=== PATIENT | male | born 1955 | race Caucasian/White ===

== ENCOUNTER 2017-09-14 12:58 | Inpatient (IN) | payer SELFPAY ==
[~2017-09-14] VITALS: Ht 188 cm; Wt 79.4 kg
--- NOTE | ~2017-09-14 | PR ---
[place], [place] PROGRESS NOTE NAME: GIULIANO WALLER UNIT #: [id number] ROOM: 411 DOCTOR: DIANE GIRALDO MD BIRTHDATE: [birth year] DOS: 09/18/2017 SUBJECTIVE: He has been noted comfortable at this time. NG tube remains in place. TPN was continued. The patient remains n.p.o. He has been noted with cough with intermittent sputum expectoration described to be thick. Denies symptoms of chest pain or hemoptysis. The patient remains rather on the telemetry floor this morning. OBJECTIVE: VITAL SIGNS: Normal temperature, respiratory rate 18, heart rate 84, blood pressure 164/99. The pulse oxygen saturation 3 liters nasal cannula 94% saturation. HEENT: No acute change. NECK: Supple. CARDIOVASCULAR: S1, S2 audible. LUNGS: The patient was noted without any crackles, rhonchi, or wheezing at this time. Breath sounds noted mild to moderately decreased bilaterally. ABDOMEN: Soft, status post surgery. LABORATORY DATA: The patient's CMP this morning; BUN normal, creatinine was normal. CBC: WBC count 11.8, remaining CBC normal. The chest x-ray of the patient that was done this morning, 1-view for the patient shows a small pleural fluid with bilateral lower lobe infiltration stable without changes compared to previous chest x-ray of yesterday. IMPRESSION: 1. Resolving acute pneumonia bilaterally. Small bilateral pleural fluid secondary to that. 2. Acute hypoxic respiratory failure, remains stable. Status post liberation from mechanical ventilation. 3. Status post exploratory laparotomy. PLAN OF TREATMENT: No changes from the pulmonary standpoint. The patient is currently showing progressive improvement in the oral respiratory status. Titrate oxygen supplementation to maintain a saturation of oxygen greater than 90%. Continue incentive spirometry, flutter valve if tolerated. Bronchodilators and oxygen supplementation. [place], [place] PROGRESS NOTE NAME: GIULIANO WALLER UNIT #: [id number] ROOM: 411 DOCTOR: DIANE GIRALDO MD BIRTHDATE: [birth year] DIANE NEWTON MD CM:PNTRANS [id number] DIANE GONZALEZ MD 09/19/17 0024 interface
--- NOTE | ~2017-09-14 | PR ---
[place], [place] PROGRESS NOTE NAME: GIULIANO WALLER UNIT #: [id number] ROOM: 411 DOCTOR: JIM RACHEL DO BIRTHDATE: [birth year] DOS: 09/21/2017 SUBJECTIVE: The patient seen and examined at bedside. The patient is sitting upright in bed in no acute distress. The patient has been tolerating his soft diet well with no complaints. The patient denies any shortness of breath, chest pain, wheezing or positive sputum production. OBJECTIVE: VITAL SIGNS: Temperature 97.4, pulse is 74, respirations 20, blood pressure 159/85, pulse ox is 93% on 2 liters nasal cannula. GENERAL APPEARANCE: The patient is awake, alert and oriented times 3, no acute distress. HEENT: Eyes are clear. Nares are patent. Mucous membranes are moist. NECK: Supple, nontender. CARDIOVASCULAR: Regular rate and rhythm, no murmurs, gallops or rubs. S1 and S2 noted. PULMONARY: Clear to auscultation. No wheezes, rales or rhonchi. ABDOMEN: Soft, nontender with positive bowel signs. EXTREMITIES: Clear of edema, erythema, clubbing or cyanosis. NEUROLOGIC: Negative for focal deficits. LABORATORY DATA: Blood cultures remain negative. Sputum cultures remain negative. Urine culture and MRSA surveillance remain negative. IMPRESSION: Progressive resolution of acute hypoxic respiratory failure, improving acute pneumonia with a perforated peptic ulcer and status post pyloroplasty and exploratory laparotomy TREATMENT PLAN: The patient is medically stable from a pulmonary standpoint. The patient should be assessed for home oxygen needs before being discharged; however, from a pulmonary standpoint, the patient is stable as long as his home O2 needs can be met, no change in current therapy. JIM VIRGINIE, DO [place], [place] PROGRESS NOTE NAME: GIULIANO WALLER UNIT #: [id number] ROOM: 411 DOCTOR: JIM RACHEL DO BIRTHDATE: [birth year] DIANE NEWTON MD CM:PNAUREA [id number] JIM RACHEL DO 09/22/17 0233 interface
--- NOTE | ~2017-09-14 | PR ---
[place], [place] PROGRESS NOTE NAME: GIULIANO WALLER UNIT #: [id number] ROOM: 411 DOCTOR: VIRGINIE JIM BIRTHDATE: [birth year] DOS: 09/19/2017 SUBJECTIVE: The patient was seen and examined and in the Radiology Department before his modified barium swallow. The patient reports that he continues to have a productive cough and feels like he is getting most of the mucus and phlegm in his lungs up. The patient reports the shortness of breath has improved and has no new complaints at this time. OBJECTIVE: VITAL SIGNS: Temperature 97.7, pulse is 85, respirations 18, blood pressure 165/84, pulse ox 94% on 3 liters nasal cannula. GENERAL APPEARANCE: Awake, alert, oriented x 3, in no acute distress. HEENT: Eyes are clear. No injection. Nares are patent. NG tube in place. Mucous membranes are moist. NECK: Supple, nontender. PULMONARY: Clear to auscultation. No wheezes, rales or rhonchi. CARDIOVASCULAR: Regular rate and rhythm. No murmurs, gallops or rubs. ABDOMEN: Soft, nontender with positive bowel sounds. EXTREMITIES: Clear of edema, erythema, clubbing or cyanosis. NEUROLOGIC: Negative for focal deficits. LABORATORY DATA: Legionella and strep pneumo blood analysis is pending. Sputum cultures, blood cultures, urine cultures and MRSA surveillance is negative. Chest x-ray from yesterday morning showed small bilateral pleural effusions and interstitial lung disease is not ruled out. IMPRESSION: 1. Resolving pneumonia, bilateral. 2. Acute hypoxic respiratory failure, status improved. 3. Status post laparotomy. PLAN: The patient is medically stable from a pulmonary standpoint. No change in current pulmonary care. Continue with antibiotics, continue to titrate oxygen supplementation, continue incentive spirometry ____ valve as needed, bronchodilators be continued. JIM RACHEL DO [place], [place] PROGRESS NOTE NAME: GIULIANO WALLER UNIT #: [id number] ROOM: 411 DOCTOR: VIRGINIEJIM SANTAMARIA DO BIRTHDATE: [birth year] DIANE NEWTON MD CM:PNAUREA [id number] JIM RACHEL DO 09/19/17 1355 interface
--- NOTE | ~2017-09-14 | PR ---
[place], [place] PROGRESS NOTE NAME: GIULIANO WALLER UNIT #: [id number] ROOM: [place] [address] DOCTOR: LAMAR GONZALEZ MD,DIANE BIRTHDATE: [birth year] DOS: 09/16/2017 SUBJECTIVE: The patient remains on mechanical ventilator in the last 24 hours there has not been reported any hemodynamic instability, feeding was continued with the TPN for this patient yesterday, well tolerated. He has been noted improvement in mental status with gradual reduction in oxygen requirement was also done for the patient, based on improvement in oxygenation the patient's oxygen saturation noted as 95%-98% and the oxygen decreased to 35% this morning. He has not been noted in distress this morning. The patient was noted with reduction in sedation, appropriately following vocal commands, the patient was noted awake. We continued the antibiotics and other treatment plan as well. OBJECTIVE: VITAL SIGNS: The patient showed normal temperature, respiratory rate 17, heart rate 98, blood pressure 131/82-117/60. Intake for the patient was 5300 mL, the output 1490 mL. Drainage from the NG tube was noted as none. 240 mL drainage from the abdominal drain was noted. The pulse oxygen saturation of the patient was 35% oxygen 96% saturation. HEENT: The patient remained orally intubated. Nasogastric tube is in place. Head was atraumatic. Eyes nonicterus. NECK: Supple. CARDIOVASCULAR: S1, S2 audible. LUNGS: [id number] degree of breath sounds without any wheezing or crackles. ABDOMEN: Status post surgery with hypoactive bowel sounds. CENTRAL NERVOUS SYSTEM: The patient is moving all the upper and lower extremities does not have apparent gross focal neurologic deficit, noted awake as well. SKIN: Visible skin, no lesions or rashes. MUSCULOSKELETAL: Noted without any acute deformities. LABORATORY DATA: Arterial blood gas of the patient that was done this morning, pH of 7.36, pCO2 of 40, ____ on 60% oxygen earlier. The urine culture, no bacterial growth. Endotracheal aspiration noted normal duarte preliminary final cultures are pending from of this month. Blood culture both sets of the patient was reported with no bacterial growth, preliminary final culture results were pending. Chest x-ray of the patient that was done this morning were reviewed, endotracheal tube was noted in the appropriate position with small pleural fluid with improving aeration of the lungs bilaterally. IMPRESSION: 1. The patient with acute postoperative hypoxic respiratory failure, combination for atelectasis as well acute superimposed bacterial pneumonia. 2. Status post exploratory laparotomy for the perforated peptic ulcer for the patient at this time. 3. Severe protein-calorie malnutrition was noted with prealbumin only 10. PLAN OF TREATMENT: Continue with current maximal nutritional support, TPN. Oral nutrition support per surgeon. The patient's sedation has been completely discontinued, started CPAP 5, pressure support of 10 with pressure of the [place], [place] PROGRESS NOTE NAME: GIULIANO WALLER UNIT #: [id number] ROOM: [place] [address] DOCTOR: LAMAR GONZALEZ MD,DIANE BIRTHDATE: [birth year] patient tidal volume noted about 650 mL. The patient with a respiratory rate about 18-20 noted at the bedside. The CPAP motor mechanical ventilation will be continued for additional 2 hours. The arterial blood gas to be done for the patient after that for the assessment and possible liberation from mechanical ventilator after that. BiPAP may be used for the patient if necessary. Continue current supplementation, can continue bronchodilators and ventilator bundle management as long as the patient remains on mechanical ventilation. Continue DVT prophylaxis as well. Supportive care with additional treatment changes to be made for this patient based on progression of the illness. TIME SPENT: Total time spent on pulmonary and critical care evaluation and management was 37 minutes. DIANE NEWTON MD CM:PNTRANS [phone] DIANE GONZALEZ MD 09/16/17 2305 interface
--- NOTE | ~2017-09-14 | PR ---
[place], [place] PROGRESS NOTE NAME: GIULIANO WALLER UNIT #: [id number] ROOM: 411 DOCTOR: LAMAR GONZALEZ MD,DIANE BIRTHDATE: [birth year] DOS: 09/19/2017 SUBJECTIVE: The patient was independently seen and examined in [id number] encounter, history was confirmed. Physical exam was performed. Labs were reviewed. Assessment and management were personally completed. Note done by the associate medical director was approved as well. The patient has been noted comfortable at this time. NG tube is in place. Plan for the upper GI series had the patency of the current surgery of pyloroplasty for this patient for the peptic ulcer perforation. The patient has been noted a cough and continue a small amount of sputum expectoration. Denies any acute shortness of breath. OBJECTIVE: VITAL SIGNS: Reviewed as noted as normal. The pulse oxygen saturation recorded 3 liters and 95% saturation. HEENT: NG tube in place. CARDIOVASCULAR: S1, S2 audible. LUNGS: Without any wheezing or crackles. ABDOMEN: Soft, nontender. EXTREMITIES: Without any acute edema. IMPRESSION: Stable respiratory status, resolving area of atelectasis, acute hypoxic respiratory failure; progressive, resolving acute pneumonia as well. PLAN OF MANAGEMENT: No changes in the medical plan at this time will be necessary. Continue current plan of management. Titrate oxygen to maintain a saturation oxygen 90% greater, ambulation and use of the bronchodilators. DIANE NEWTON MD CM:PNAUREA [id number] DIANE GONZALEZ MD 09/20/17 0322 interface
--- NOTE | ~2017-09-14 | PR ---
[place], [place] PROGRESS NOTE NAME: GIULIANO WALLER UNIT #: [id number] ROOM: 411 DOCTOR: LAMAR GONZALEZ MD,DIANE BIRTHDATE: [birth year] DOS: 09/17/2017 SUBJECTIVE: The patient has been showing continued gradual reduction and improvement in respiratory symptoms. Cough has been still noted in the patient, mostly nonproductive. The patient mild to moderate symptoms of chest pain or hemoptysis. Denies symptoms of abdominal pain. He has been continued on intravenous corticosteroids, bronchodilators, and antibiotics. OBJECTIVE: VITAL SIGNS: The patient showed normal temperature, respiratory rate 22, heart rate 67, and blood pressure 126/60. Pulse oxygen saturation of the patient was noted as 94% on 3 liters via nasal cannula. HEENT: Examination shows no acute change. NECK: Supple. CARDIOVASCULAR: S1, S2 audible. LUNGS: The patient was noted without any crackles. Occasional wheezing in the patient was present. ABDOMEN: Soft, obese, and nontender. Bowel sounds are present. LABORATORY DATA: The culture of the sputum of the patient noted as normal duarte. The chest x-ray of the patient that was done this morning for the patient was reviewed, shows mild pleural thickening, and was noted without any gross pleural effusions. DIANE NEWTON MD CM:PNTRANS [phone] DIANE GONZALEZ MD 09/18/17 0109 interface
--- NOTE | ~2017-09-14 | PR ---
[place], [place] PROGRESS NOTE NAME: GIULIANO WALLER UNIT #: [id number] ROOM: 411 DOCTOR: LAMAR GONZALEZ MD,DIANE BIRTHDATE: [birth year] DOS: 09/20/2017 SUBJECTIVE: The patient independently seen and examined in [id number] encounter, history was confirmed. Physical examination of the patient personally performed. The assessment and management of the patient was completed personally for today's visit as well. The note which was done by the medical i d sales was approved as well. The patient has been noted comfortable at this time. The NG tube has been started and clear liquids as tolerated. Denies symptoms of acute shortness of breath, coughing has been gradually subsiding with small amount of sputum expectoration, oxygen has been titrated with the patient gradually. OBJECTIVE: VITAL SIGNS: Reviewed was noted essentially normal except mild systolic hypertension. The pulse ox saturation on 3 liters nasal cannula 96% saturation. NECK: Supple. CARDIOVASCULAR: S1, S2 audible. LUNGS: Shows basilar crackles in the left lower lung mild, right lung was clear. ABDOMEN: Soft, nontender. EXTREMITIES: Without any edema. Legionella antigen in the urine were negative. Streptococcal antigen in the urine was noted negative as well. Blood culture, no bacterial growth from the 09/14/2017. IMPRESSION: Progressive resolution of acute hypoxic respiratory failure, improving acute pneumonia, status post pyloroplasty, perforated peptic ulcer. Exploratory laparotomy. PLAN OF MANAGEMENT: No changes in the plan of therapy for the patient at this time was recommended. Other previous treatment previously will be ongoing. Usual care. DIANE NEWTON MD CM:PNTRANS [id number] DIANE GONZALEZ MD 09/21/17 0715 interface
--- NOTE | ~2017-09-14 | PR ---
[place], [place] PROGRESS NOTE NAME: GIULIANO WALLER UNIT #: [id number] ROOM: 411 DOCTOR: JIM RACHEL DO BIRTHDATE: [birth year] DOS: 09/20/2017 SUBJECTIVE: The patient seen and examined at bedside. The patient is sitting upright in bed in no acute distress. The patient reports that he has been eating okay this morning after he had removed the NG tube yesterday. No new complaints at this time. The patient continues to improve clinically. The patient denies any respiratory symptoms at this time including no cough, no fever, no chills, no shortness of breath, no wheezing. OBJECTIVE: VITAL SIGNS: Temperature 97.9, pulse is 80, respirations 18, blood pressure 150/76 and pulse ox is 93%. GENERAL APPEARANCE: The patient is alert, awake and oriented times 3, no acute distress. HEENT: Eyes are clear. Nares are patent. Mucous membranes are moist. NECK: Supple, nontender. CARDIOVASCULAR: S1 and S2 noted. Regular rate and rhythm. PULMONARY: Clear to auscultation. No wheezes, rales or rhonchi. ABDOMEN: Soft, nontender with positive bowel sounds. EXTREMITIES: Clear of edema, erythema, clubbing or cyanosis. NEUROLOGIC: Negative for focal deficits. LABORATORY DATA: Chemistries from this morning were grossly normal. Blood cultures and sputum cultures remain negative. Urine cultures and MRSA screening were negative. Upper GI series from yesterday showed post-surgical changes around the first portion of the duodenum, no acute change. No indication of leak. IMPRESSION: Stable respiratory status, status post ventilation weaning, resolving area of atelectasis, resolved hypoxic respiratory failure, resolved acute pneumonia. PLAN: Continue with current antibiotics. The patient is medically stable from a pulmonary standpoint. We will continue to follow, continue to titrate oxygen as needed to maintain good oxygenation, saturation above 90% and ambulation as tolerated. JIM RACHEL DO [place], [place] PROGRESS NOTE NAME: GIULIANO WALLER UNIT #: [id number] ROOM: 411 DOCTOR: JIM RACHEL DODATE: [birth year] DIANE NEWTON MD CM:ELIESER [id number] JIM RACHEL DO 09/20/17 1227 interface
--- NOTE | ~2017-09-14 | PR ---
[place], [place] PROGRESS NOTE NAME: GIULIAON WALLER UNIT #: [id number] ROOM: 411 DOCTOR: LAMAR GONZALEZ MD,DIANE BIRTHDATE: [birth year] DOS: 09/17/2017 SUBJECTIVE: The patient successfully liberated from mechanical ventilator yesterday after tolerating the CPAP trial for the patient for 2 hours. The patient has been noted comfortable at this time. NG tube remains in place for the patient. Continued to get TPN. Respiratory echeverria, he has been noted with mild cough, no sputum expectoration or any abdominal pain. Denies symptoms of hemoptysis or any chest pain. The patient has not been noted any symptoms of edema or pain of the lower extremities. OBJECTIVE: VITAL SIGNS: For the patient which was recorded today shows the temperature noted as normal. The respiratory rate 24-20, heart rate 83, blood pressure 134/67. Intake of 3400 mL, output 6125 mL ____ liters. Pulse oxygen saturation on 3 liters cannula this morning, sitting at rest was 94 percent saturation of oxygen recorded. HEENT: Examination shows no acute change. NECK: Supple. NG tube in place. Orotracheal tube was removed. CARDIOVASCULAR: S1, S2 audible. LUNGS: Noted with decreased breath sounds in the lower lung base. There was no wheezing or crackles. ABDOMEN: Soft, nontender. Status post surgery. EXTREMITIES: Without any edema. MUSCULOSKELETAL: No deformities. SKIN: No lesions or rashes. CENTRAL NERVOUS SYSTEM: Intact. LABORATORY DATA: CBC today: WBC count normal, hemoglobin 12.4, hematocrit 35.4, platelet count of 148,000. CMP this morning, glucose 137, BUN and creatinine was normal. Potassium 3.2, total protein 5.2, albumin 1.6. The culture of the endotracheal aspirate noted normal duarte. Chest x-ray this morning showed improvement in the aeration was continued with small bilateral pleural fluid noted greater in left than the right side. IMPRESSION: 1. The patient has been noted status post liberation from mechanical ventilation, resolving acute hypoxic respiratory failure, acute pneumonia, combination of atelectasis of lower lungs. Small pleural fluid related to the area of atelectasis and/or pneumonia. 2. Status post abdominal surgery with exploratory laparotomy and perforated peptic ulcer. 3. Protein-calorie malnutrition was also noted. Overall debility secondary to current illness. 4. Electrolyte imbalance. PLAN OF TREATMENT: The patient could be transferred to telemetry floor. Oxygen supplementation by nasal cannula will be continued. Ambulation, the patient as tolerated. Physical therapy, outpatient therapy. Continue TPN. Monitor for any fluid overload. The patient noted with negative fluid balance at this time, use diuretic intermittently as necessary. Other supportive therapy, plan of [place], [place] PROGRESS NOTE NAME: GIULIANO WALLER UNIT #: [id number] ROOM: [facility] DOCTOR: LAMAR GONZALEZ MD,DIANE BIRTHDATE: [birth year] management as well. Usual treatment. Additional treatment changes will be ordered based on the progression of the illness. DIANE NEWTON MD CM:PNAUREA [phone] DIANE GONZALEZ MD 09/18/17227 interface
--- NOTE | ~2017-09-14 | PR ---
[place], [place] PROGRESS NOTE NAME: GIULIANO WALLER UNIT #: [id number] ROOM: 411 DOCTOR: LAMAR GONZALEZ MD,DIANE BIRTHDATE: [birth year] DOS: 09/21/2017 The patient is independently seen and examined in [id number] encounter. History was confirmed. Physical examination was performed. The labs were reviewed. The assessment and management of the patient's note today was personally completed. Note done by the certified ophthalmic medical technician was approved as well. SUBJECTIVE: He has been tolerating clear liquid. Denies symptoms of shortness of breath. Cough was noted minimal. There were no symptoms of chest pain reported by the patient. PHYSICAL EXAMINATION: VITAL SIGNS: Reviewed as normal. The pulse oxygen saturation of the patient was noted as 90% on room air and 2 liters nasal cannula earlier 93% saturation. LUNGS: Noted without any wheezing or crackles. ABDOMEN: Soft and nontender. EXTREMITIES: Without any acute edema. LABORATORY DATA: CBC, WBC count 12.7, mild anemia, otherwise normal. IMPRESSION: 1. The patient with resolution of acute hypoxic respiratory failure, resolving acute pneumonia and area of atelectasis progressively in the lower lungs. 2. Status post surgery of the patient's perforated peptic ulcer and pyloroplasty. PLAN OF MANAGEMENT: No changes from the pulmonary standpoint. The patient would not require any oxygen supplementation prior to the discharge. Other supportive plan of therapies could be continued as previously. Abstinence from tobacco use was recommended. DIANE NEWTON MD CM:PNTRANS [id number] DIANE GONZALEZ MD 09/22/17 0101 interface
--- NOTE | ~2017-09-14 | CON ---
[place], [place] REPORT OF CONSULTATION NAME: GIULIANO WALLER UNIT #: [id number] ROOM: [place] [address] DOCTOR: DIANE GIRALDO MD BIRTHDATE: [birth year] DOS: 09/15/2017 PULMONARY CRITICAL CARE EVALUATION, MANAGEMENT AND CONSULTATION CONSULTATION REQUESTED BY: Hospitalist services. REASON FOR CONSULTATION: To assess the patient's current acute respiratory failure, on the mechanical ventilator post surgery. HISTORY OF PRESENT ILLNESS: The patient is unable to give any history at this time as the patient is intubated and sedated. All the history in the documents are actually review of the medical record by the other consultants and the primary care attending note as well as a nurse's notes. The patient presented to the hospital Emergency Room on 09/14/2017. He has reported severe burning and epigastric pain, which has been described off and on for the past few years. The pain has been noted significantly worsened. He has been managed by a physician in [place], [place] and was reported with a past history of multiple gastric ulcers. The patient has not been using the medication for the management of ulcers at this time. He does not have any regular physician to be seen. The pain has been described to be quite severe after the patient ate hotdog, which was noted progressively worsened. The symptoms are also associated with nausea and vomiting as well. The patient has been admitted to the hospital with diagnosis of perforated peptic ulcer or hollow viscus was established. The patient underwent surgical treatment and has a surgical management done for the patient's current peptic ulcer yesterday by Dr. Wu. The finding was described as perforated prepyloric ulcer with exploratory laparotomy, plication of the prepyloric ulcer with abdominal washout and lavage was done. The patient was noted with blood loss less than 25 mL with the current surgery. He had not been able to be extubated or liberated from mechanical ventilation for surgery and admitted to the Intensive Care Unit after surgery. This morning, the patient remains on the mechanical ventilator, still requires 60% oxygen supplementation. PaO2 was only noted 68 to a current settings mechanical ventilation, tidal volume of 450 mL, rate of 12, assist control, PEEP of 5.0. The patient has been sedated with intravenous Diprivan. He had not been reported any findings of hemoptysis; however, purulent secretion has been suctioned out from the endotracheal tube by the nursing and the respiratory staff. REVIEW OF SYSTEMS: Certainly cannot be completed further as the patient is currently intubated, noted on the mechanical ventilation. PREVIOUS MEDICAL HISTORY: Noted: 1. Peptic ulcer disease with gastric ulcer, past multiple endoscopies. 2. History of nicotine abuse. PAST SURGICAL HISTORY: 1. Left inguinal hernia repair. 2. Ventral hernia repair. 3. EGD. [place], [place] REPORT OF CONSULTATION NAME: GIULIANO WALLER UNIT #: [id number] ROOM: [place] [address] DOCTOR: LAMAR GONZALEZ MD,DIANE BIRTHDATE: [birth year] SOCIAL HISTORY: He was living at home. He has been known with history of heavy tobacco use since age of 18 years, but the exact quantity of the tobacco use was unknown. He has been also noted social use of alcohol. There was no history of illicit drug use reported. FAMILY HISTORY: Reported for father at age of 7272 years old, complication of heart disease. Mother at the age of 7676 years old, complication related to the congestive heart failure. HOME MEDICATIONS: None. DRUG ALLERGIES: Noted essentially no known drug allergies. PHYSICAL EXAMINATION: GENERAL: A 62-year-old white male who has been currently sedated on the mechanical ventilator. VITAL SIGNS: The patient has endotracheal tube oral insertion. Orogastric tube noted in place. HEENT: Head was atraumatic. Eye nonicterus. NECK: Supple. CARDIOVASCULAR: S1, S2 audible. LUNGS: The patient was noted with [id number] decreased breath sounds with scattered wheezing in the lungs. There were no crackles heard. ABDOMEN: Soft, status post surgery. Bowel sounds were not detected. CENTRAL NERVOUS SYSTEM: Currently, the patient is sedated. VISIBLE SKIN: No lesions or rashes. MUSCULOSKELETAL: No gross deformities. LABORATORY DATA: CBC of 09/14 - WBC count 15.2, hemoglobin and hematocrit normal, platelet count normal. CMP of 09/14 - glucose 133, BUN and creatinine were normal, remaining CMP normal. Lipase normal yesterday. Lactic acid yesterday normal. The troponin 3 sets after admission were noted normal. Hemoglobin, hematocrit later repeated remains normal. The BMP after surgery, normal BUN and creatinine and chloride of 110. The PT, PTT this morning was repeated as normal. CMP this morning, glucose 148. Normal BUN and creatinine and other electrolytes grossly. The albumin 2.3, total protein 5.7. CBC this morning - WBC count 15.8, remaining CBC normal. Arterial blood gas was done this morning at 6:52 a.m. 60% oxygen, pH of 7.33, pCO2 43, pO2 68.5, 60% oxygen assist control, volume control mechanical ventilation. Endotracheal as per yesterday, moderate white blood cells, moderate Gram-positive cocci in pairs and chains with few Gram-negative bacilli. Arterial blood gas, which was repeated after the increase in the tidal volume to 600 mL, PEEP of 8 with 60% oxygen. PaO2 was noted at this time is 76.7, pH normal 7.36 and pCO2 was 38. The review of the radiology data pertinent to the chest. The chest x-ray that was done yesterday on 09/14 was noted with basilar area of atelectasis and occasional infiltration that was noted on the chest x-ray on admission in both lower lobes. The chest x-ray that was done after intubation shows high riding endotracheal tube, which was adjusted to be advanced. The changes remains as previously in the lower lungs. The multi-lumen catheter was also inserted in the right internal jugular vein. The chest x-ray repeated was noted with endotracheal [place], [place] REPORT OF CONSULTATION NAME: GIULIANO WALLER UNIT #: [id number] ROOM: [place] [address] DOCTOR: DIANE GIRALDO MD BIRTHDATE: [birth year] [address] appropriate [address] at this time. The tip noted about 4.5 cm above moise level. Multi-lumen catheter remains in place and other findings remain unchanged. Area of dense consolidation with pleural fluid in the left side appeared to be very likely. Lower portion of the thoracic portion included with a CT scan of the abdomen and pelvis of yesterday was reviewed as well that was done at 2055. Consolidation was noted in the right lower lobe and a small area of atelectasis noted in the left mid lung as well. There were no significant pleural fluid noted. IMPRESSION: 1. The patient who had been currently admitted to the hospital noted with persistent severe hypoxia with acute hypoxic respiratory for surgery, combination from the area of atelectasis lower lung and suspected acute pneumonia in the lower lungs. 2. Status post exploratory laparotomy with surgery for perforated peptic ulcer completed last night. 3. History of tobacco use with possibility of underlying chronic obstructive pulmonary disease cannot be excluded; however, the patient does not have a formal testing performed to assess for that. Scattered wheezing in the lungs was noted. PLAN OF MANAGEMENT: The endotracheal aspirate has been already corrected. The remaining ventilator bundle management will be continued. The patient is already getting 2 antibiotics as Levaquin and Zosyn for the anaerobic and aerobic coverage for the abdominal organism that should also get good coverage for the acute pneumonia. Continuation of the current ventilation with sedation with use of the intravenous propofol. The patient will be started on periodic nutritional support. The patient will be started TPN that was already ordered by Dr. Wu. DVT prophylaxis will be given as well. Other supportive therapy, plan of management as in progress. At this time, the oxygen supplementation remains the same for this patient with gradual reduction based on improvement. The patient has not been noted a candidate for liberation from mechanical ventilation at least today. He will be reassessed tomorrow for that. Other supportive plan of management and care plan. Usual care. Supportive plan of treatment as in progress. Additional treatment changes continue to be made based on the progression of his illness. Chest x-ray monitoring to be continued as well on a daily basis. Total time for pulmonary and critical care evaluation and management for this patient was 42 minutes. [place], [place] REPORT OF CONSULTATION NAME: GIULIANO WALLER UNIT #: [id number] ROOM: [place] [address] DOCTOR: DIANE GIRALDO MD BIRTHDATE: [birth year] DIANE NEWTON MD CM:CONSTR:REPORT OF CONSULTATION 1505 09/15/17 [id number] interface
--- NOTE | ~2017-09-14 | EKG ---
[place], [place] ELECTROCARDIOGRAM REPORT NAME: GIULIANO WALLER UNIT #: [id number] ROOM: [place] [address] DOCTOR: NEY MURO,IRINA BIRTHDATE: [birth year] DOS: 09/14/2017 TIME: 1327 Hours. IMPRESSION: 1. Sinus rhythm, rate 100. 2. Anteroseptal infarction, is under treatment. 3. Baseline artifact. 4. Normal QT interval. IRINA BREWSTER MD CM:EKGRPT:ELECTROCARDIOGRAM REPORT 1424 1906 IRINA BREWSTER MD
[2017-09-14 02:35] VITALS: BP 183/91
[~2017-09-14 12:58] MED LIST: ASPIRIN ADULT L81 M1 PO; BENTYL10 MG PO; BLOOD PRESSURE PILL; CARAFATE1 G1 PO; HYDROCODONE BIT1 T11 PO; LISINOPRIL20 MG PO; PROTONIX20 MG PO; PROTONIX40 MG PO; REGLAN5 MG PO; TYLENOL325 M1 PO; ZITHROMAX250 MG PO
[2017-09-14 13:07] VITALS: BP 161/87
[2017-09-14 14:18] LABS: BASO % 0.2 % (0.0-1.0); EOS % 0.1 % (1.0-4.0); HEMATOCRIT 48.5 % (42.0-52.0); LYMPH % 6.8 % (27.0-41.0); MEAN CELL VOLUME 84.9 fl (80.0-94.0); MEAN CORPUSCULAR HGB 29.8 pg (27.0-31.0); MEAN CORPUSCULAR HGB CONC 35.1 g/dl (33.0-37.0); MEAN PLATELET VOLUME 9.9 fl (9.6-12.3); MONO % 6.5 % (3.0-9.0); NEUT # 13.1 10*3/uL (2.3-7.9); NEUT % 85.9 % (47.0-73.0); PLATELET COUNT AUTOMATED 274 10*3/uL (130-400); RED BLOOD COUNT 5.71 10*6/uL (4.50-5.90); WHITE BLOOD COUNT 15.2 10*3/uL (4.8-10.8)
[2017-09-14 14:30] LABS: ALBUMIN 3.1 gm/dl (3.1-4.5); ALKALINE PHOSPHATASE 115 U/L (45-117); BUN 14 mg/dl (7-24); CHLORIDE 103 mmol/L (98-107); LIPASE 76 U/L (73-393); POTASSIUM 3.6 mmol/L (3.5-5.1); SGOT/AST 14 IU/L (3-35); SGPT/ALT 17 U/L (12-78); SODIUM 138 mmol/L (136-145)
[2017-09-14 15:47] VITALS: BP 168/87
[2017-09-14 16:25] LABS: PHOSPHOROUS 3.9 mg/dL (2.5-4.9)
[2017-09-14 16:27] LABS: TROPONIN I < 0.015 ng/ml (<0.045)
[2017-09-14 16:40] VITALS: BP 182/108
[2017-09-14 20:00] VITALS: BP 136/93
[2017-09-14 22:05] LABS: BILIRUBIN 1+ (NEGATIVE); BLOOD TRACE-LYSED (NEGATIVE); CLARITY SL CLOUDY (CLEAR); COLOR YELLOW (YELLOW); GLUCOSE NEGATIVE (NEGATIVE); KETONE NEGATIVE (NEGATIVE); LEUKO ESTERASE NEGATIVE (NEGATIVE); NITRITE NEGATIVE (NEGATIVE)
[2017-09-14 22:18] LABS: BACTERIA 2+; EPITHELIAL CELLS 0-2; MUCOUS TRACE; RBC 0-2 rbc/hpf (0-2)
[2017-09-15] VITALS (25 sets, daily range): BP systolic 93–166; BP diastolic 49–94
[2017-09-15] LABS: HEMATOCRIT 46.1 % (42.0-52.0); HEMOGLOBIN 16.4 g/dl (14.0-18.0)
[2017-09-15 00:15] LABS: BUN 17 mg/dl (7-24); CHLORIDE 110 mmol/L (98-107); CREATININE 0.91 mg/dL (0.70-1.30); SODIUM 141 mmol/L (136-145)
[2017-09-15 05:40] LABS: ACT PARTIAL THROMBO TIME 29.4 SECONDS (20.8-31.5); INTERNATIONAL NORM RATIO 1.1 (2.0-3.5)
[2017-09-15 05:41] LABS: HEMATOCRIT 47.9 % (42.0-52.0); HEMOGLOBIN 16.3 g/dl (14.0-18.0); MEAN CORPUSCULAR HGB 30.7 pg (27.0-31.0); MEAN PLATELET VOLUME 10.3 fl (9.6-12.3); PLATELET COUNT AUTOMATED 240 10*3/uL (130-400); RED BLOOD COUNT 5.31 10*6/uL (4.50-5.90); RED CELL DISTRI WIDTH 14.4 % (0-14.5); WHITE BLOOD COUNT 15.8 10*3/uL (4.8-10.8)
[2017-09-15 05:44] LABS: ALBUMIN 2.3 gm/dl (3.1-4.5); ALKALINE PHOSPHATASE 70 U/L (45-117); BUN 15 mg/dl (7-24); CHLORIDE 109 mmol/L (98-107); CHOLESTEROL 73 mg/dL (<200); CREATININE 0.82 mg/dL (0.70-1.30); HDL CHOLESTEROL 34 mg/dl (40-60); LDL CHOLESTEROL 26 mg/dL (9-159); POTASSIUM 4.1 mmol/L (3.5-5.1); SGOT/AST 23 IU/L (3-35); SGPT/ALT 20 U/L (12-78); SODIUM 141 mmol/L (136-145); TOTAL PROTEIN 5.7 gm/dL (6.4-8.2); TRIGLYCERIDES 63 mg/dl (<150); VLDL CHOLESTEROL 13 mg/dL (6-40)
[2017-09-15 05:47] LABS: MEAN CELL VOLUME 90.2 fl (80.0-94.0)
[2017-09-15 05:53] LABS: THYROID STIM HORMONE (HS) 0.524 uIU/ml (0.358-4.75)
[2017-09-15 06:51] LABS: BURR CELLS MODERATE; PLATELET SUFFICIENCY NORMAL (NORMAL); SCHISTOCYTES FEW; TOTAL CELLS COUNTED 100 #CELLS
[2017-09-15 07:02] LABS: ABG HCO3 22.5 mmol/l (22-26); ABG O2 SATURATION 92.7 % (95-97); ARTERIAL BLOOD GAS PCO2 43.1 mmHg (35-45); ARTERIAL BLOOD GAS PH 7.335 (7.35-7.45); ARTERIAL BLOOD GAS PO2 68.5 mmHg (80-90)
[2017-09-15 07:22] LABS: VITAMIN D, 25-HYDROXY 13.9 ng/mL (30-100)
[2017-09-15 10:18] LABS: ABG BASE EXCESS -3.2 mmol/L (-2.0-2.0); ABG HCO3 21.4 mmol/l (22-26); ABG O2 SATURATION 95.5 % (95-97); ARTERIAL BLOOD GAS PH 7.366 (7.35-7.45); ARTERIAL BLOOD GAS PO2 76.7 mmHg (80-90)
[2017-09-16] VITALS (10 sets, daily range): BP systolic 106–157; BP diastolic 60–88
[2017-09-16 06:18] LABS: ALBUMIN 1.7 gm/dl (3.1-4.5); ALKALINE PHOSPHATASE 49 U/L (45-117); BUN 20 mg/dl (7-24); CHLORIDE 111 mmol/L (98-107); CREATININE 0.82 mg/dL (0.70-1.30); PHOSPHOROUS 1.8 mg/dL (2.5-4.9); POTASSIUM 3.9 mmol/L (3.5-5.1); SGOT/AST 18 IU/L (3-35); SGPT/ALT 13 U/L (12-78); SODIUM 141 mmol/L (136-145); TOTAL PROTEIN 4.8 gm/dL (6.4-8.2)
[2017-09-16 06:19] LABS: PREALBUMIN 10 mg/dl (20-40)
[2017-09-16 06:34] LABS: BASO % 0.3 % (0.0-1.0); EOS # 0.1 10*3/uL (0.0-0.4); LYMPH # 0.8 10*3/uL (1.3-4.4); LYMPH % 7.9 % (27.0-41.0); MEAN CELL VOLUME 90.4 fl (80.0-94.0); MEAN CORPUSCULAR HGB 30.5 pg (27.0-31.0); MEAN CORPUSCULAR HGB CONC 33.7 g/dl (33.0-37.0); MONO # 0.8 10*3/uL (0.1-1.0); MONO % 7.7 % (3.0-9.0); NEUT # 8.4 10*3/uL (2.3-7.9); NEUT % 82.5 % (47.0-73.0); RED BLOOD COUNT 3.97 10*6/uL (4.50-5.90); RED CELL DISTRI WIDTH 14.6 % (0-14.5); WHITE BLOOD COUNT 10.2 10*3/uL (4.8-10.8)
[2017-09-16 06:35] LABS: HEMATOCRIT 35.9 % (42.0-52.0); HEMOGLOBIN 12.1 g/dl (14.0-18.0); PLATELET COUNT AUTOMATED 166 10*3/uL (130-400)
[2017-09-16 07:58] LABS: ABG BASE EXCESS -1.9 mmol/L (-2.0-2.0); ABG HCO3 22.5 mmol/l (22-26); ABG O2 SATURATION 98.7 % (95-97); ARTERIAL BLOOD GAS PCO2 40.8 mmHg (35-45); ARTERIAL BLOOD GAS PH 7.364 (7.35-7.45)
[2017-09-16 14:45] LABS: ABG BASE EXCESS -0.4 mmol/L (-2.0-2.0); ABG O2 SATURATION 94.5 % (95-97); ARTERIAL BLOOD GAS PCO2 35.7 mmHg (35-45); ARTERIAL BLOOD GAS PH 7.426 (7.35-7.45); ARTERIAL BLOOD GAS PO2 69.4 mmHg (80-90)
[2017-09-17] VITALS: BP 129/68
[2017-09-17 04:00] VITALS: BP 129/69
[2017-09-17 06:02] LABS: BASO % 0.3 % (0.0-1.0); EOS # 0.1 10*3/uL (0.0-0.4); EOS % 0.7 % (1.0-4.0); HEMATOCRIT 35.4 % (42.0-52.0); HEMOGLOBIN 12.4 g/dl (14.0-18.0); LYMPH # 0.7 10*3/uL (1.3-4.4); LYMPH % 7.6 % (27.0-41.0); MEAN CELL VOLUME 88.5 fl (80.0-94.0); MEAN PLATELET VOLUME 11.1 fl (9.6-12.3); MONO # 0.6 10*3/uL (0.1-1.0); MONO % 6.1 % (3.0-9.0); NEUT % 84.7 % (47.0-73.0); PLATELET COUNT AUTOMATED 148 10*3/uL (130-400); RED CELL DISTRI WIDTH 14.4 % (0-14.5); WHITE BLOOD COUNT 9.4 10*3/uL (4.8-10.8)
[2017-09-17 06:09] LABS: ALBUMIN 1.6 gm/dl (3.1-4.5); ALKALINE PHOSPHATASE 61 U/L (45-117); BILIRUBIN, DIRECT < 0.1 mg/dL (0.0-0.2); BUN 13 mg/dl (7-24); CHLORIDE 106 mmol/L (98-107); CREATININE 0.68 mg/dL (0.70-1.30); PHOSPHOROUS 2.1 mg/dL (2.5-4.9); POTASSIUM 3.2 mmol/L (3.5-5.1); SGOT/AST 17 IU/L (3-35); SGPT/ALT 13 U/L (12-78); SODIUM 141 mmol/L (136-145); TOTAL PROTEIN 5.2 gm/dL (6.4-8.2)
[2017-09-17 08:00] VITALS: BP 134/67
[2017-09-17 12:00] VITALS: BP 126/60
[2017-09-17 15:51] VITALS: BP 175/75
[2017-09-17 20:00] VITALS: BP 147/84
[2017-09-18] VITALS: BP 156/87
[2017-09-18 07:38] LABS: ALBUMIN 1.9 gm/dl (3.1-4.5); BUN 13 mg/dl (7-24); CHLORIDE 106 mmol/L (98-107); POTASSIUM 3.8 mmol/L (3.5-5.1); SODIUM 138 mmol/L (136-145)
[2017-09-18 07:42] LABS: ALKALINE PHOSPHATASE 140 U/L (45-117); CREATININE 0.62 mg/dL (0.70-1.30); PHOSPHOROUS 3.6 mg/dL (2.5-4.9); SGOT/AST 17 IU/L (3-35); SGPT/ALT 15 U/L (12-78); TOTAL PROTEIN 5.8 gm/dL (6.4-8.2)
[2017-09-18 07:43] LABS: BASO % 0.3 % (0.0-1.0); EOS # 0.2 10*3/uL (0.0-0.4); EOS % 1.5 % (1.0-4.0); HEMATOCRIT 42.4 % (42.0-52.0); HEMOGLOBIN 14.8 g/dl (14.0-18.0); LYMPH # 0.8 10*3/uL (1.3-4.4); LYMPH % 6.5 % (27.0-41.0); MEAN CELL VOLUME 85.3 fl (80.0-94.0); MEAN CORPUSCULAR HGB 29.8 pg (27.0-31.0); MEAN CORPUSCULAR HGB CONC 34.9 g/dl (33.0-37.0); MEAN PLATELET VOLUME 10.7 fl (9.6-12.3); MONO % 8.4 % (3.0-9.0); NEUT # 9.7 10*3/uL (2.3-7.9); NEUT % 82.7 % (47.0-73.0); RED BLOOD COUNT 4.97 10*6/uL (4.50-5.90); RED CELL DISTRI WIDTH 14.2 % (0-14.5); WHITE BLOOD COUNT 11.8 10*3/uL (4.8-10.8)
[2017-09-18 07:44] LABS: PLATELET COUNT AUTOMATED 243 10*3/uL (130-400)
[2017-09-18 08:00] VITALS: BP 164/99
[2017-09-18 12:00] VITALS: BP 159/98
[2017-09-18 16:00] VITALS: BP 151/94
[2017-09-18 20:00] VITALS: BP 160/92
[2017-09-19] VITALS: BP 156/87
[2017-09-19 08:00] VITALS: BP 165/84
[2017-09-19 12:00] VITALS: BP 168/87
[2017-09-19 16:00] VITALS: BP 149/82
[2017-09-19 20:00] VITALS: BP 146/91
[2017-09-20] VITALS: BP 156/99
[2017-09-20 08:00] VITALS: BP 150/76
[2017-09-20 08:35] LABS: ALBUMIN 1.9 gm/dl (3.1-4.5); ALKALINE PHOSPHATASE 150 U/L (45-117); BUN 15 mg/dl (7-24); CHLORIDE 103 mmol/L (98-107); CREATININE 0.74 mg/dL (0.70-1.30); POTASSIUM 4.1 mmol/L (3.5-5.1); SGOT/AST 31 IU/L (3-35); SGPT/ALT 51 U/L (12-78); SODIUM 138 mmol/L (136-145); TOTAL PROTEIN 5.7 gm/dL (6.4-8.2)
[2017-09-20 12:00] VITALS: BP 152/86
[2017-09-20 16:00] VITALS: BP 152/85
[2017-09-20 20:00] VITALS: BP 151/87
[2017-09-21] VITALS: BP 148/73
[2017-09-21 07:02] LABS: BASO # 0.1 10*3/uL (0.0-0.1); BASO % 0.6 % (0.0-1.0); EOS # 0.8 10*3/uL (0.0-0.4); EOS % 6.4 % (1.0-4.0); HEMATOCRIT 37.9 % (42.0-52.0); HEMOGLOBIN 13.2 g/dl (14.0-18.0); LYMPH # 1.1 10*3/uL (1.3-4.4); LYMPH % 8.3 % (27.0-41.0); MEAN CELL VOLUME 86.5 fl (80.0-94.0); MEAN CORPUSCULAR HGB 30.1 pg (27.0-31.0); MEAN CORPUSCULAR HGB CONC 34.8 g/dl (33.0-37.0); MEAN PLATELET VOLUME 10.7 fl (9.6-12.3); MONO # 1.5 10*3/uL (0.1-1.0); MONO % 12.1 % (3.0-9.0); NEUT % 70.9 % (47.0-73.0); PLATELET COUNT AUTOMATED 235 10*3/uL (130-400); RED BLOOD COUNT 4.38 10*6/uL (4.50-5.90); RED CELL DISTRI WIDTH 14.2 % (0-14.5); WHITE BLOOD COUNT 12.7 10*3/uL (4.8-10.8)
[2017-09-21 07:35] LABS: ALBUMIN 1.9 gm/dl (3.1-4.5); CHLORIDE 104 mmol/L (98-107); POTASSIUM 3.8 mmol/L (3.5-5.1); SODIUM 138 mmol/L (136-145)
[2017-09-21 07:38] LABS: ALKALINE PHOSPHATASE 192 U/L (45-117); BUN 13 mg/dl (7-24); CREATININE 0.67 mg/dL (0.70-1.30); PHOSPHOROUS 3.5 mg/dL (2.5-4.9); SGOT/AST 29 IU/L (3-35); SGPT/ALT 49 U/L (12-78); TOTAL PROTEIN 5.9 gm/dL (6.4-8.2)
[2017-09-21 08:00] VITALS: BP 159/85
[2017-09-21] MEDS ORDERED: HYDROCODONE-AC1 EAC1 PO (09:51)
[2017-09-21] MEDS ORDERED: Carafate1 GM/10 ML PO (09:51)
[2017-09-21] MEDS ORDERED: PROTONIX40 M1 IV (09:51)
[2017-09-21] MEDS ORDERED: LEVAQUIN750 M1 PO (11:17)
[2017-09-21 12:00] VITALS: BP 149/77
== END 2017-09-21 12:15 | disposition home or self-care (01) | DRG 853 ==
LOC: ED → ICCU 16:04 → EDHOLD 16:04 → 5E 16:26 → ICCU 09-15 02:11 → 4E 09-17 15:20
PROVIDERS: Emergency Medicine; Internal Medicine; Internal Medicine Critical Care Medicine; Internal Medicine Hospice and Palliative Medicine; Student in an Organized Health Care Education/Training Program
PROC: 0BH17EZ Insertion of Endotracheal Airway into Trachea, Via Natural or Artificial Opening (ICD-10-PCS; principal; 2017-09-14)
PROC: 5A1935Z Respiratory Ventilation, Less than 24 Consecutive Hours (ICD-10-PCS; principal; 2017-09-14)
PROC: 0DV Gastrointestinal System, Restriction (ICD-10-PCS; 2017-09-15)
PROC: B548ZZA Ultrasonography of Superior Vena Cava, Guidance (ICD-10-PCS; 2017-09-15)
PROC: 02HV33Z Insertion of Infusion Device into Superior Vena Cava, Percutaneous Approach (ICD-10-PCS; 2017-09-15)
DX: A41.9 Sepsis, unspecified organism (principal); J96.01 Acute respiratory failure with hypoxia; E43 Unspecified severe protein-calorie malnutrition; K27.5 Chronic or unspecified peptic ulcer, site unspecified, with perforation; K66.8 Other specified disorders of peritoneum; J18.1 Lobar pneumonia, unspecified organism; R65.20 Severe sepsis without septic shock; E55.9 Vitamin D deficiency, unspecified; E66.9 Obesity, unspecified; R73.9 Hyperglycemia, unspecified; E53.8 Deficiency of other specified B group vitamins; Z79.2 Long term (current) use of antibiotics; Z79.899 Other long term (current) drug therapy; Z98.52 Vasectomy status; Z83.3 Family history of diabetes mellitus; Z82.49 Family history of ischemic heart disease and other diseases of the circulatory system; Z71.6 Tobacco abuse counseling; Z72.0 Tobacco use; Z68.22 Body mass index [BMI] 22.0-22.9, adult

== ENCOUNTER → 2017-09-26 | Outpatient (CLI) | payer SELFPAY ==
[~2017-09-26] MED LIST changes: +Carafate1 GM/10 ML PO; +HYDROCODONE-AC1 EAC1 PO; +LEVAQUIN750 M1 PO; +PROTONIX40 M1 IV
== END | disposition home or self-care (01) ==
LOC: RESCLI 00:42
DX: Z09 Encounter for follow-up examination after completed treatment for conditions other than malignant neoplasm (principal); Z76.89 Persons encountering health services in other specified circumstances; I10 Essential (primary) hypertension; J18.9 Pneumonia, unspecified organism; K27.5 Chronic or unspecified peptic ulcer, site unspecified, with perforation; Z72.0 Tobacco use

== ENCOUNTER → 2017-10-09 | Outpatient (CLI) | payer SELFPAY | END | disposition home or self-care (01) | LOC: RESCLI 03:13 | DX: I10 Essential (primary) hypertension (principal); J18.9 Pneumonia, unspecified organism; K27.5 Chronic or unspecified peptic ulcer, site unspecified, with perforation; Z72.0 Tobacco use ==

== ENCOUNTER 2018-07-08 23:36 | Emergency (ER) | payer SELFPAY ==
[~2018-07-08] VITALS: Ht 187.9 cm; Wt 86.2 kg
[2018-07-09 00:01] LABS: BILIRUBIN NEGATIVE (NEGATIVE); BLOOD 1+ (NEGATIVE); CLARITY CLEAR (CLEAR); COLOR YELLOW (YELLOW); GLUCOSE NEGATIVE (NEGATIVE); KETONE NEGATIVE (NEGATIVE); LEUKO ESTERASE NEGATIVE (NEGATIVE); NITRITE NEGATIVE (NEGATIVE); PH 6.5 (5.0-9.0); SPECIFIC GRAVITY 1.015 (1.005-1.030); UROBILINOGEN 0.2 E.U./dl (0.2-1.0)
[2018-07-09 00:04] LABS: BASO # 0.1 10*3/uL (0.0-0.1); BASO % 0.4 % (0.0-1.0); EOS # 0.2 10*3/uL (0.0-0.4); EOS % 1.2 % (1.0-4.0); HEMATOCRIT 49.3 % (42.0-52.0); HEMOGLOBIN 17.4 g/dl (14.0-18.0); LYMPH # 1.8 10*3/uL (1.3-4.4); LYMPH % 13.7 % (27.0-41.0); MEAN CELL VOLUME 86.8 fl (80.0-94.0); MEAN CORPUSCULAR HGB 30.6 pg (27.0-31.0); MEAN CORPUSCULAR HGB CONC 35.3 g/dl (33.0-37.0); MEAN PLATELET VOLUME 9.9 fl (9.6-12.3); MONO # 1.1 10*3/uL (0.1-1.0); MONO % 8.3 % (3.0-9.0); NEUT # 10.2 10*3/uL (2.3-7.9); NEUT % 75.6 % (47.0-73.0); PLATELET COUNT AUTOMATED 301 10*3/uL (130-400); RED BLOOD COUNT 5.68 10*6/uL (4.50-5.90); RED CELL DISTRI WIDTH 14.2 % (0-14.5); WHITE BLOOD COUNT 13.4 10*3/uL (4.8-10.8)
[2018-07-09 00:22] LABS: ALBUMIN 3.5 gm/dl (3.1-4.5); ALKALINE PHOSPHATASE 117 U/L (45-117); BUN 17 mg/dl (7-24); CHLORIDE 100 mmol/L (98-107); CREATININE 0.97 mg/dL (0.70-1.30); POTASSIUM 4.2 mmol/L (3.5-5.1); SGOT/AST 19 IU/L (3-35); SGPT/ALT 17 U/L (12-78); SODIUM 134 mmol/L (136-145); TOTAL PROTEIN 7.9 gm/dL (6.4-8.2)
== END 2018-07-09 01:29 | disposition home or self-care (01) ==
LOC: ED 23:36
PROVIDERS: Student in an Organized Health Care Education/Training Program
DX: R10.30 Lower abdominal pain, unspecified (principal); F17.200 Nicotine dependence, unspecified, uncomplicated

== ENCOUNTER 2018-07-16 16:05 | Inpatient (IN) | payer SELFPAY ==
[~2018-07-16] VITALS: Ht 187.9 cm; Wt 78.1 kg
[2018-07-16] VITALS (7 sets, daily range): BP systolic 168–193; BP diastolic 66–94
--- NOTE | ~2018-07-16 | CON ---
[place], [place] REPORT OF CONSULTATION NAME: GIULIANO WALLER UNIT #: [id number] ROOM: 407 DOCTOR: ALEX SANDHU MD BIRTHDATE: [birth year] DOS: 07/17/2018 GASTROENDOSCOPIC CONSULTATION HISTORY OF PRESENT ILLNESS: The patient presented with chief complaint of epigastric distress. The patient with a known history of peptic ulcer disease, who has been surgically sutured and repaired. The patient has been noncompliant as far as his followup is concerned. The patient was admitted through the Emergency Room of [facility] [place], I have been consulted regarding followup on his epigastric pain and perforated ulcer disease. White blood cell was 11.2, H and H of 17 and 49. Comprehensive metabolic panel, electrolyte balance, and potassium 3.3 has been addressed. Liver function tests, lipase normal. CT scan of the abdomen and pelvis was obtained. There is increasing edema and inflammatory adjacent to the second portion of the duodenum when compared to prior studies. The distal abdominal aortic aneurysm has not changed the size, no leak. The broad base midline upper and mid abdominal wall hernia. His incisional hernia has been noticed. Troponin was negative. His H and H nearly stayed uncompromise. His urine culture is negative. His latest comprehensive metabolic panel again corrected. Potassium noticed. PAST MEDICAL HISTORY: Diverticulosis, abdominal aortic aneurysm, perforated duodenal ulcer, bilateral pneumonia, history of vitamin D deficiency, and ventral hernia. PAST SURGICAL HISTORY: Exploratory laparotomy and left inguinal hernia repair, status post location of perforated duodenal ulcer. SOCIAL HISTORY: Smoker and social alcohol consumer. FAMILY HISTORY: Noncontributory. ALLERGIES: No known medications. MEDICATIONS: List has been reviewed. REVIEW OF SYSTEMS: HEENT: Denies double vision, blurred vision. RESPIRATORY: Denies acute shortness of breath. CARDIOVASCULAR: Denies acute chest pain. DIGESTIVE SYSTEM: Epigastric pain. PHYSICAL EXAMINATION: VITAL SIGNS: Stable. HEENT: Head normocephalic, nontraumatic. Mouth and buccal mucosa benign. NECK: Supple, no thyromegaly, no cervical lymphadenopathy. CHEST: Symmetric anatomy, equal expansion. No wheeze, no rhonchi. HEART: Normal sinus rhythm, no gallop or murmur. ABDOMEN: Soft. No hepato-organomegaly. A midline scar was noticed through which incisional large ventral hernia, currently demonstrated. Bowel sounds present. [place], [place] REPORT OF CONSULTATION NAME: GIULIANO WALLER UNIT #: [id number] ROOM: 407 DOCTOR: ALEX SANDHU MD BIRTHDATE: [birth year] EXTREMITIES: No cyanosis, no pedal edema. NEUROLOGIC: Alert and oriented to time, place, and person. IMPRESSION: Epigastric pain. History of perforated peptic ulcer disease, status post application in the past. Other adjunctive diagnoses, ventral hernia. Hypokalemia that has been corrected, nicotine dependency, abdominal aortic aneurysm and as identified otherwise in past medical and surgical history. PLAN AND DISCUSSION: We are going to proceed with a panendoscopy. Thank you very much indeed. ALEX SANDHU MD CM:CONSTR:REPORT OF CONSULTATION 1742 07/26/18 1725 interface
--- NOTE | ~2018-07-16 | EKG ---
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
--- NOTE | ~2018-07-16 | O ---
[place], [place] OPERATIVE NOTE NAME: GIULIANO WALLER UNIT #: [id number] ROOM: 407 DOCTOR: ALEX SANDHU MD BIRTHDATE: [birth year] DOS: 07/17/2018 IDENTIFICATION: A 63-year-old patient was presented with epigastric pain, abnormal CT scan of the abdomen, undergoing investigation. PROCEDURE: Today's procedure part of investigation is panendoscopy plus biopsy. PREMEDICATION: Propofol. SCOPE: Olympus forward-viewing gastroscope Q10 video. REPORT: After putting the patient in left lateral position and application of lubricant to the scope, the scope was introduced. Thereafter, under direct visualization, advanced through the length of esophagus without difficulty. Gastric pouch was entered. Gastritis was noticed. As I entered the pyloric ring in the junction of first and second part, there is intense duodenitis and very large hidden scarred duodenal ulcer. This is nearly concaved in the area. Meticulously, the scope was negotiated to bypass the depth of the ulcer from the side. The third part of the duodenum was approached, which appears to be benign and patent. Photographic series obtained. Biopsy from distant margin of the ulcer was obtained. Another biopsy from antrum was obtained to rule out H. pylori. The patient extubated, tolerated the procedure well. IMPRESSION: Giant duodenal ulcer with surgical suture threads on the periphery. This ulcer is very large. It is not containing a patel red spot and intensely scarred and inflammatory response around that is noticed in duodenal bulb and second part junction. PLAN AND DISCUSSION: While he is here, we are going to keep him on Protonix 40 mg IV b.i.d. as well as sucralfate slurry 2 grams q.i.d. 2 hours before meals and at bedtime for the purpose of not agitating the ulcer. We are going to put him on ice cream, milk shake, and liquid diet. Fortunately, he does not have compromised H and H. I think he should have followup as outpatient. Thank you very much indeed. [place], [place] OPERATIVE NOTE NAME: GIULIANO WALLER UNIT #: [id number] ROOM: 407 DOCTOR: ALEX SANDHU MD BIRTHDATE: [birth year] ALEX SANDHU MD CM:YOLA:OPERATIVE NOTE 1742 [id number] ALEX SANDHU MD 07/26/18 1727 interface
[2018-07-16 17:02] LABS: BASO # 0.1 10*3/uL (0.0-0.1); BASO % 0.5 % (0.0-1.0); EOS # 0.1 10*3/uL (0.0-0.4); EOS % 1.1 % (1.0-4.0); HEMATOCRIT 49.3 % (42.0-52.0); HEMOGLOBIN 17.3 g/dl (14.0-18.0); LYMPH % 9.3 % (27.0-41.0); MEAN CELL VOLUME 86.5 fl (80.0-94.0); MEAN CORPUSCULAR HGB 30.4 pg (27.0-31.0); MEAN CORPUSCULAR HGB CONC 35.1 g/dl (33.0-37.0); MEAN PLATELET VOLUME 9.9 fl (9.6-12.3); MONO # 0.8 10*3/uL (0.1-1.0); MONO % 7.1 % (3.0-9.0); NEUT # 9.1 10*3/uL (2.3-7.9); NEUT % 81.7 % (47.0-73.0); PLATELET COUNT AUTOMATED 265 10*3/uL (130-400); RED CELL DISTRI WIDTH 13.5 % (0-14.5); WHITE BLOOD COUNT 11.2 10*3/uL (4.8-10.8)
[2018-07-16 17:17] LABS: ALKALINE PHOSPHATASE 109 U/L (45-117); BUN 14 mg/dl (7-24); CHLORIDE 98 mmol/L (98-107); CREATININE 0.98 mg/dL (0.70-1.30); LIPASE 86 U/L (73-393); POTASSIUM 3.3 mmol/L (3.5-5.1); SGOT/AST 9 IU/L (3-35); SGPT/ALT 16 U/L (12-78); SODIUM 134 mmol/L (136-145)
[2018-07-16 18:00] LABS: BILIRUBIN NEGATIVE (NEGATIVE); BLOOD TRACE-INTACT (NEGATIVE); CLARITY CLEAR (CLEAR); COLOR YELLOW (YELLOW); GLUCOSE NEGATIVE (NEGATIVE); KETONE 1+ (NEGATIVE); LEUKO ESTERASE NEGATIVE (NEGATIVE); NITRITE NEGATIVE (NEGATIVE); SPECIFIC GRAVITY <= 1.005 (1.005-1.030); UROBILINOGEN 0.2 E.U./dl (0.2-1.0)
[2018-07-16 18:06] LABS: BACTERIA 2+; EPITHELIAL CELLS 0-2; RBC 0-2 rbc/hpf (0-2)
[2018-07-17] VITALS (9 sets, daily range): BP systolic 134–176; BP diastolic 66–94
[2018-07-17 07:46] LABS: BASO # 0.1 10*3/uL (0.0-0.1); BASO % 0.8 % (0.0-1.0); EOS # 0.4 10*3/uL (0.0-0.4); EOS % 3.7 % (1.0-4.0); HEMOGLOBIN 15.6 g/dl (14.0-18.0); LYMPH # 1.4 10*3/uL (1.3-4.4); LYMPH % 14.1 % (27.0-41.0); MEAN CELL VOLUME 87.9 fl (80.0-94.0); MEAN CORPUSCULAR HGB 30.5 pg (27.0-31.0); MEAN CORPUSCULAR HGB CONC 34.7 g/dl (33.0-37.0); MEAN PLATELET VOLUME 10.4 fl (9.6-12.3); MONO # 1.1 10*3/uL (0.1-1.0); NEUT # 7.2 10*3/uL (2.3-7.9); NEUT % 70.2 % (47.0-73.0); PLATELET COUNT AUTOMATED 235 10*3/uL (130-400); RED BLOOD COUNT 5.12 10*6/uL (4.50-5.90); RED CELL DISTRI WIDTH 13.6 % (0-14.5); WHITE BLOOD COUNT 10.2 10*3/uL (4.8-10.8)
[2018-07-17 08:13] LABS: CHLORIDE 103 mmol/L (98-107); POTASSIUM 3.6 mmol/L (3.5-5.1); SODIUM 136 mmol/L (136-145)
[2018-07-17 08:22] LABS: ALBUMIN 2.8 gm/dl (3.1-4.5); ALKALINE PHOSPHATASE 97 U/L (45-117); BUN 9 mg/dl (7-24); CHOLESTEROL 121 mg/dL (<200); CREATININE 0.68 mg/dL (0.70-1.30); HDL CHOLESTEROL 24 mg/dl (40-60); LDL CHOLESTEROL 82 mg/dL (9-159); PHOSPHOROUS 2.6 mg/dL (2.5-4.9); SGOT/AST 10 IU/L (3-35); SGPT/ALT 12 U/L (12-78); THYROID STIM HORMONE (HS) 0.904 uIU/ml (0.358-4.75); TOTAL PROTEIN 6.1 gm/dL (6.4-8.2); TRIGLYCERIDES 73 mg/dl (<150); VLDL CHOLESTEROL 15 mg/dL (6-40)
[2018-07-17 08:23] LABS: INTERNATIONAL NORM RATIO 1.1 (2.0-3.5)
[2018-07-18] VITALS: BP 133/68
[2018-07-18 06:24] LABS: BASO # 0.1 10*3/uL (0.0-0.1); BASO % 1.3 % (0.0-1.0); EOS # 0.6 10*3/uL (0.0-0.4); EOS % 7.1 % (1.0-4.0); HEMATOCRIT 45.1 % (42.0-52.0); HEMOGLOBIN 15.5 g/dl (14.0-18.0); LYMPH # 2.1 10*3/uL (1.3-4.4); LYMPH % 24.9 % (27.0-41.0); MEAN CELL VOLUME 86.9 fl (80.0-94.0); MEAN CORPUSCULAR HGB 29.9 pg (27.0-31.0); MEAN CORPUSCULAR HGB CONC 34.4 g/dl (33.0-37.0); MEAN PLATELET VOLUME 10.5 fl (9.6-12.3); MONO # 1.1 10*3/uL (0.1-1.0); MONO % 13.7 % (3.0-9.0); NEUT # 4.4 10*3/uL (2.3-7.9); NEUT % 52.6 % (47.0-73.0); PLATELET COUNT AUTOMATED 242 10*3/uL (130-400); RED BLOOD COUNT 5.19 10*6/uL (4.50-5.90); RED CELL DISTRI WIDTH 13.5 % (0-14.5); WHITE BLOOD COUNT 8.3 10*3/uL (4.8-10.8)
[2018-07-18 06:51] LABS: BUN 9 mg/dl (7-24); CHLORIDE 97 mmol/L (98-107); CREATININE 0.91 mg/dL (0.70-1.30); POTASSIUM 3.1 mmol/L (3.5-5.1); SODIUM 134 mmol/L (136-145)
[2018-07-18 08:00] VITALS: BP 138/88
[2018-07-18 12:00] VITALS: BP 142/76
[2018-07-18 16:00] VITALS: BP 136/76
[2018-07-18 20:00] VITALS: BP 148/78
[2018-07-19] VITALS: BP 148/85
[2018-07-19 06:35] LABS: BASO # 0.1 10*3/uL (0.0-0.1); BASO % 1.2 % (0.0-1.0); EOS # 0.5 10*3/uL (0.0-0.4); EOS % 6.1 % (1.0-4.0); HEMOGLOBIN 15.5 g/dl (14.0-18.0); LYMPH # 1.5 10*3/uL (1.3-4.4); LYMPH % 19.8 % (27.0-41.0); MEAN CELL VOLUME 86.4 fl (80.0-94.0); MEAN CORPUSCULAR HGB 29.8 pg (27.0-31.0); MEAN CORPUSCULAR HGB CONC 34.4 g/dl (33.0-37.0); MEAN PLATELET VOLUME 10.5 fl (9.6-12.3); MONO # 0.9 10*3/uL (0.1-1.0); MONO % 11.7 % (3.0-9.0); NEUT # 4.7 10*3/uL (2.3-7.9); NEUT % 60.9 % (47.0-73.0); PLATELET COUNT AUTOMATED 225 10*3/uL (130-400); RED BLOOD COUNT 5.21 10*6/uL (4.50-5.90); RED CELL DISTRI WIDTH 13.5 % (0-14.5); WHITE BLOOD COUNT 7.7 10*3/uL (4.8-10.8)
[2018-07-19 06:51] LABS: BUN 12 mg/dl (7-24); CHLORIDE 97 mmol/L (98-107); CREATININE 0.96 mg/dL (0.70-1.30); POTASSIUM 3.3 mmol/L (3.5-5.1); SODIUM 134 mmol/L (136-145)
[2018-07-19 08:00] VITALS: BP 120/98
[2018-07-19] MEDS ORDERED: Carafate1 GM/10 ML PO (11:45)
[2018-07-19] MEDS ORDERED: PROTONIX40 MG PO ×2 (11:45→11:48)
[2018-07-19 12:00] VITALS: BP 147/78
== END 2018-07-19 13:34 | disposition home or self-care (01) | DRG 378 ==
LOC: ED 16:05 → 4E 19:35 → EDHOLD 19:35 → 4E 20:15
PROVIDERS: Internal Medicine; Nurse Practitioner Family; Podiatrist Primary Podiatric Medicine; Student in an Organized Health Care Education/Training Program
PROC: 0DB68ZX Excision of Stomach, Via Natural or Artificial Opening Endoscopic, Diagnostic (ICD-10-PCS; principal; 2018-07-17)
DX: K29.81 Duodenitis with bleeding (principal); E87.1 Hypo-osmolality and hyponatremia; E44.0 Moderate protein-calorie malnutrition; K43.9 Ventral hernia without obstruction or gangrene; M62.08 Separation of muscle (nontraumatic), other site; I16.0 Hypertensive urgency; E86.0 Dehydration; R00.1 Bradycardia, unspecified; R82.4 Acetonuria; E87.6 Hypokalemia; R82.71 Bacteriuria; R31.29 Other microscopic hematuria; Z72.0 Tobacco use; Z71.6 Tobacco abuse counseling; I71.4 Abdominal aortic aneurysm, without rupture; R73.03 Prediabetes; K57.30 Diverticulosis of large intestine without perforation or abscess without bleeding; E53.8 Deficiency of other specified B group vitamins; E55.9 Vitamin D deficiency, unspecified; Z83.3 Family history of diabetes mellitus; Z82.49 Family history of ischemic heart disease and other diseases of the circulatory system; K26.4 Chronic or unspecified duodenal ulcer with hemorrhage; Z68.22 Body mass index [BMI] 22.0-22.9, adult

== ENCOUNTER → 2018-08-02 | Outpatient (CLI) | payer SELFPAY | END | disposition home or self-care (01) | LOC: RESCLI 00:52 | DX: I10 Essential (primary) hypertension (principal); K27.5 Chronic or unspecified peptic ulcer, site unspecified, with perforation; F17.210 Nicotine dependence, cigarettes, uncomplicated; Z71.6 Tobacco abuse counseling; Z71.3 Dietary counseling and surveillance; Z79.899 Other long term (current) drug therapy ==

== ENCOUNTER → 2018-08-05 | Outpatient (CLI) | payer SELFPAY ==
[2018-08-05 13:26] LABS: BASO # 0.1 10*3/uL (0.0-0.1); BASO % 0.8 % (0.0-1.0); EOS # 0.3 10*3/uL (0.0-0.4); HEMATOCRIT 49.4 % (42.0-52.0); HEMOGLOBIN 16.5 g/dl (14.0-18.0); LYMPH # 1.6 10*3/uL (1.3-4.4); LYMPH % 18.8 % (27.0-41.0); MEAN CELL VOLUME 89.7 fl (80.0-94.0); MEAN CORPUSCULAR HGB 29.9 pg (27.0-31.0); MEAN CORPUSCULAR HGB CONC 33.4 g/dl (33.0-37.0); MEAN PLATELET VOLUME 10.1 fl (9.6-12.3); MONO # 0.8 10*3/uL (0.1-1.0); NEUT # 5.7 10*3/uL (2.3-7.9); PLATELET COUNT AUTOMATED 256 10*3/uL (130-400); RED BLOOD COUNT 5.51 10*6/uL (4.50-5.90); RED CELL DISTRI WIDTH 14.2 % (0-14.5); WHITE BLOOD COUNT 8.6 10*3/uL (4.8-10.8)
[2018-08-05 13:50] LABS: BUN 9 mg/dl (7-24); CHLORIDE 101 mmol/L (98-107); CREATININE 0.89 mg/dL (0.70-1.30); POTASSIUM 4.3 mmol/L (3.5-5.1); SODIUM 135 mmol/L (136-145)
== END ==
LOC: LAB 12:51
PROVIDERS: Internal Medicine
DX: Z12.5 Encounter for screening for malignant neoplasm of prostate (principal); I10 Essential (primary) hypertension; K27.5 Chronic or unspecified peptic ulcer, site unspecified, with perforation; R10.13 Epigastric pain; Z79.899 Other long term (current) drug therapy

== ENCOUNTER → 2018-08-09 | Outpatient (CLI) | payer SELFPAY | END | disposition home or self-care (01) | LOC: RESCLI 03:30 | DX: I10 Essential (primary) hypertension (principal); K43.9 Ventral hernia without obstruction or gangrene; F17.210 Nicotine dependence, cigarettes, uncomplicated; Z87.19 Personal history of other diseases of the digestive system; Z71.6 Tobacco abuse counseling; Z79.899 Other long term (current) drug therapy; Z88.8 Allergy status to other drugs, medicaments and biological substances ==

== ENCOUNTER 2019-04-27 12:29 | Emergency (ER) | payer SELFPAY ==
[~2019-04-27] VITALS: Ht 187.9 cm; Wt 86.2 kg
[2019-04-27 13:12] LABS: BASO # 0.1 10*3/uL (0.0-0.1); BASO % 0.9 % (0.0-1.0); EOS # 0.4 10*3/uL (0.0-0.4); EOS % 3.8 % (1.0-4.0); HEMATOCRIT 52.1 % (42.0-52.0); HEMOGLOBIN 17.8 g/dl (14.0-18.0); LYMPH # 1.5 10*3/uL (1.3-4.4); LYMPH % 15.9 % (27.0-41.0); MEAN CELL VOLUME 89.1 fl (80.0-94.0); MEAN CORPUSCULAR HGB 30.4 pg (27.0-31.0); MEAN CORPUSCULAR HGB CONC 34.2 g/dl (33.0-37.0); MEAN PLATELET VOLUME 10.3 fl (9.6-12.3); MONO # 0.9 10*3/uL (0.1-1.0); MONO % 9.4 % (3.0-9.0); NEUT # 6.4 10*3/uL (2.3-7.9); NEUT % 69.7 % (47.0-73.0); PLATELET COUNT AUTOMATED 257 10*3/uL (130-400); RED BLOOD COUNT 5.85 10*6/uL (4.50-5.90); RED CELL DISTRI WIDTH 14.4 % (0-14.5); WHITE BLOOD COUNT 9.2 10*3/uL (4.8-10.8)
[2019-04-27 13:25] LABS: BUN 13 mg/dl (7-24); CHLORIDE 103 mmol/L (98-107); CREATININE 1.19 mg/dL (0.70-1.30); POTASSIUM 3.8 mmol/L (3.5-5.1); SODIUM 137 mmol/L (136-145)
[2019-04-27 14:52] LABS: BILIRUBIN NEGATIVE (NEGATIVE); BLOOD TRACE-INTACT (NEGATIVE); CLARITY CLEAR (CLEAR); COLOR YELLOW (YELLOW); GLUCOSE NEGATIVE (NEGATIVE); KETONE NEGATIVE (NEGATIVE); LEUKO ESTERASE NEGATIVE (NEGATIVE); NITRITE NEGATIVE (NEGATIVE); SPECIFIC GRAVITY 1.015 (1.005-1.030); UROBILINOGEN 0.2 E.U./dl (0.2-1.0)
[2019-04-27 14:58] LABS: MUCOUS 1+
[2019-04-27 14:59] LABS: BACTERIA 1+
[2019-04-27] MEDS ORDERED: TYLENOL325 M1 PO (16:27)
[2019-04-27] MEDS ORDERED: NORVASC10 MG PO (16:27)
== END 2019-04-27 16:48 | disposition home or self-care (01) ==
LOC: ED 12:29
PROVIDERS: Emergency Medicine
DX: M54.5 Low back pain (principal); R19.7 Diarrhea, unspecified; I10 Essential (primary) hypertension; Z98.890 Other specified postprocedural states; F17.200 Nicotine dependence, unspecified, uncomplicated; Z87.11 Personal history of peptic ulcer disease; X58.XXXA Exposure to other specified factors, initial encounter; Y93.89 Activity, other specified; Y92.89 Other specified places as the place of occurrence of the external cause; Y99.8 Other external cause status

== ENCOUNTER 2019-04-29 11:20 | Emergency (ER) | payer SELFPAY ==
[~2019-04-29] VITALS: Ht 187.9 cm; Wt 86.2 kg
[~2019-04-29 11:20] MED LIST changes: +NORVASC10 MG PO
[2019-04-29] MEDS ORDERED: COLACE100 MG PO (12:59)
== END 2019-04-29 12:28 | disposition home or self-care (01) ==
LOC: ED 11:20
DX: K59.00 Constipation, unspecified (principal); M54.5 Low back pain; M25.552 Pain in left hip; I10 Essential (primary) hypertension; F17.200 Nicotine dependence, unspecified, uncomplicated; Z79.899 Other long term (current) drug therapy

== ENCOUNTER → 2019-05-23 | Outpatient (CLI) | payer SELFPAY ==
[~2019-05-23] MED LIST changes: +COLACE100 MG PO
== END | disposition home or self-care (01) ==
LOC: RESCLI 00:40
DX: I10 Essential (primary) hypertension (principal); K43.9 Ventral hernia without obstruction or gangrene; I71.4 Abdominal aortic aneurysm, without rupture; R31.9 Hematuria, unspecified; R06.02 Shortness of breath; F17.200 Nicotine dependence, unspecified, uncomplicated; Z87.19 Personal history of other diseases of the digestive system; Z79.899 Other long term (current) drug therapy

== ENCOUNTER → 2019-05-26 | Outpatient (CLI) | payer SELFPAY | END | disposition home or self-care (01) | LOC: RAD 10:34 | DX: J44.9 Chronic obstructive pulmonary disease, unspecified (principal); I10 Essential (primary) hypertension; F17.200 Nicotine dependence, unspecified, uncomplicated ==

== ENCOUNTER → 2019-06-26 | Outpatient (CLI) | payer SELFPAY | END | disposition home or self-care (01) | LOC: RESCLI 00:38 | DX: I10 Essential (primary) hypertension (principal); Z79.899 Other long term (current) drug therapy ==

== ENCOUNTER → 2019-07-29 | Outpatient (CLI) | payer SELFPAY ==
[2019-07-29 10:03] LABS: BASO # 0.1 10*3/uL (0.0-0.1); EOS # 0.5 10*3/uL (0.0-0.4); EOS % 5.4 % (1.0-4.0); HEMATOCRIT 47.6 % (42.0-52.0); HEMOGLOBIN 16.1 g/dl (14.0-18.0); LYMPH # 1.7 10*3/uL (1.3-4.4); LYMPH % 19.6 % (27.0-41.0); MEAN CELL VOLUME 90.5 fl (80.0-94.0); MEAN CORPUSCULAR HGB 30.6 pg (27.0-31.0); MEAN CORPUSCULAR HGB CONC 33.8 g/dl (33.0-37.0); MEAN PLATELET VOLUME 9.9 fl (9.6-12.3); MONO # 0.9 10*3/uL (0.1-1.0); MONO % 10.3 % (3.0-9.0); NEUT # 5.6 10*3/uL (2.3-7.9); NEUT % 63.2 % (47.0-73.0); PLATELET COUNT AUTOMATED 266 10*3/uL (130-400); RED BLOOD COUNT 5.26 10*6/uL (4.50-5.90); RED CELL DISTRI WIDTH 14.5 % (0-14.5); WHITE BLOOD COUNT 8.8 10*3/uL (4.8-10.8)
[2019-07-29 10:36] LABS: ALBUMIN 3.2 gm/dl (3.1-4.5); ALKALINE PHOSPHATASE 120 U/L (45-117); BUN 17 mg/dl (7-24); CHLORIDE 102 mmol/L (98-107); CHOLESTEROL 159 mg/dL (<200); CREATININE 1.06 mg/dL (0.70-1.30); HDL CHOLESTEROL 35 mg/dl (40-60); LDL CHOLESTEROL 111 mg/dL (9-159); POTASSIUM 4.3 mmol/L (3.5-5.1); SGOT/AST 15 IU/L (3-35); SGPT/ALT 13 U/L (12-78); SODIUM 135 mmol/L (136-145); TOTAL PROTEIN 7.3 gm/dL (6.4-8.2); TRIGLYCERIDES 64 mg/dl (<150); VLDL CHOLESTEROL 13 mg/dL (6-40)
[2019-07-29 11:27] LABS: BILIRUBIN NEGATIVE (NEGATIVE); BLOOD TRACE-INTACT (NEGATIVE); CLARITY SL CLOUDY (CLEAR); COLOR YELLOW (YELLOW); GLUCOSE NEGATIVE (NEGATIVE); KETONE NEGATIVE (NEGATIVE); LEUKO ESTERASE NEGATIVE (NEGATIVE); NITRITE NEGATIVE (NEGATIVE); PH 5.5 (5.0-9.0); UROBILINOGEN 0.2 E.U./dl (0.2-1.0)
[2019-07-29 11:39] LABS: WBC 0-2 wbc/hpf (0-5)
[2019-07-30 10:08] LABS: CREATININE,URINE 52.1 mg/dL (Not Estab.); MICRO ALBUMIN/CRE RATIO <5.8 (0.0-30.0)
== END | disposition home or self-care (01) ==
LOC: RESCLI 01:17
PROVIDERS: Internal Medicine
DX: I71.4 Abdominal aortic aneurysm, without rupture (principal); I10 Essential (primary) hypertension; K43.9 Ventral hernia without obstruction or gangrene; F17.200 Nicotine dependence, unspecified, uncomplicated; Z87.19 Personal history of other diseases of the digestive system; Z79.899 Other long term (current) drug therapy

== ENCOUNTER → 2019-09-02 | Outpatient (CLI) | payer SELFPAY | END | disposition home or self-care (01) | LOC: RESCLI 02:24 | DX: I10 Essential (primary) hypertension (principal); E55.9 Vitamin D deficiency, unspecified; I71.4 Abdominal aortic aneurysm, without rupture; K43.9 Ventral hernia without obstruction or gangrene; Z98.52 Vasectomy status; Z98.890 Other specified postprocedural states ==

== ENCOUNTER → 2019-10-09 | Outpatient (CLI) | payer OTHER ==
[~2019-10-09] MED LIST changes: +DOXYCYCLINE100 M3 PO; +TESSALON PERLE100 M1 PO
== END | disposition home or self-care (01) ==
LOC: RESCLI 00:52
DX: I10 Essential (primary) hypertension (principal); E55.9 Vitamin D deficiency, unspecified; Z79.899 Other long term (current) drug therapy; F17.210 Nicotine dependence, cigarettes, uncomplicated; Z98.890 Other specified postprocedural states

== ENCOUNTER → 2019-10-14 | Outpatient (CLI) | payer OTHER | END | disposition home or self-care (01) | LOC: CARD 14:27 | DX: I34.8 Other nonrheumatic mitral valve disorders (principal); I34.0 Nonrheumatic mitral (valve) insufficiency; I70.0 Atherosclerosis of aorta; R06.09 Other forms of dyspnea ==

== ENCOUNTER 2019-10-20 13:44 | Emergency (ER) | payer OTHER ==
[~2019-10-20 13:44] MED LIST changes: -DOXYCYCLINE100 M3 PO; -TESSALON PERLE100 M1 PO
[2019-10-20 15:31] LABS: BASO # 0.1 10*3/uL (0.0-0.1); BASO % 1.3 % (0.0-1.0); EOS # 0.1 10*3/uL (0.0-0.4); EOS % 2.5 % (1.0-4.0); HEMATOCRIT 41.8 % (42.0-52.0); HEMOGLOBIN 14.2 g/dl (14.0-18.0); LYMPH # 0.8 10*3/uL (1.3-4.4); LYMPH % 13.8 % (27.0-41.0); MEAN CELL VOLUME 89.9 fl (80.0-94.0); MEAN CORPUSCULAR HGB 30.5 pg (27.0-31.0); MEAN PLATELET VOLUME 10.1 fl (9.6-12.3); MONO % 18.4 % (3.0-9.0); NEUT # 3.5 10*3/uL (2.3-7.9); NEUT % 63.8 % (47.0-73.0); PLATELET COUNT AUTOMATED 179 10*3/uL (130-400); RED BLOOD COUNT 4.65 10*6/uL (4.50-5.90); RED CELL DISTRI WIDTH 14.3 % (0-14.5); WHITE BLOOD COUNT 5.5 10*3/uL (4.8-10.8)
[2019-10-20 15:48] LABS: ALBUMIN 2.9 gm/dl (3.1-4.5); ALKALINE PHOSPHATASE 100 U/L (45-117); BUN 15 mg/dl (7-24); CHLORIDE 101 mmol/L (98-107); CREATININE 0.99 mg/dL (0.70-1.30); POTASSIUM 3.8 mmol/L (3.5-5.1); SGOT/AST 12 IU/L (3-35); SGPT/ALT 14 U/L (12-78); SODIUM 133 mmol/L (136-145); TOTAL PROTEIN 6.4 gm/dL (6.4-8.2)
[2019-10-20] MEDS ORDERED: DOXYCYCLINE100 M3 PO (16:56)
[2019-10-20] MEDS ORDERED: TESSALON PERLE100 M1 PO (16:56)
== END 2019-10-20 17:11 | disposition home or self-care (01) ==
LOC: ED 13:44
PROVIDERS: Physician Assistant
DX: J10.1 Influenza due to other identified influenza virus with other respiratory manifestations (principal); I10 Essential (primary) hypertension; Z79.899 Other long term (current) drug therapy

== ENCOUNTER 2022-01-13 16:13 | Emergency (ER) | payer MEDICARE, MEDICAID ==
[~2022-01-13] VITALS: Ht 187.9 cm; Wt 83.5 kg
[~2022-01-13 16:13] MED LIST changes: +DOXYCYCLINE100 M3 PO; +TESSALON PERLE100 M1 PO
[2022-01-13 17:42] LABS: HEMATOCRIT 45.8 % (42.0-52.0); MEAN CORPUSCULAR HGB 29.9 pg (27.0-31.0); MEAN CORPUSCULAR HGB CONC 35.2 g/dl (33.0-37.0); MEAN PLATELET VOLUME 10.1 fl (9.6-12.3); PLATELET COUNT AUTOMATED 218 10*3/uL (130-400); RED BLOOD COUNT 5.39 10*6/uL (4.50-5.90); RED CELL DISTRI WIDTH 13.6 % (0-14.5); WHITE BLOOD COUNT 9.6 10*3/uL (4.8-10.8)
[2022-01-13 17:57] LABS: ALKALINE PHOSPHATASE 110 U/L (45-117); BUN 15 mg/dl (7-24); CHLORIDE 103 mmol/L (98-107); CREATININE 0.86 mg/dL (0.70-1.30); LIPASE 72 U/L (73-393); POTASSIUM 3.5 mmol/L (3.5-5.1); SGOT/AST 9 IU/L (3-35); SGPT/ALT 14 U/L (12-78); SODIUM 135 mmol/L (136-145); TOTAL PROTEIN 6.6 gm/dL (6.4-8.2)
[2022-01-13 18:08] LABS: MANUAL DIFF REFLEX YES
[2022-01-13 18:11] LABS: ATYPICAL LYMPHS 1 % (0-0); BASOPHILS 1 % (0-1); PLATELET SUFFICIENCY NORMAL (NORMAL); TOTAL CELLS COUNTED 100 #CELLS
[2022-01-13 18:42] LABS: BILIRUBIN Negative (Negative); BLOOD 1+ (Negative); CLARITY Clear (Clear); COLOR Yellow (Yellow); GLUCOSE Negative (Negative); KETONE 2+ (Negative); LEUKO ESTERASE Negative (Negative); NITRITE Negative (Negative); SPECIFIC GRAVITY 1.015 (1.001-1.030)
[2022-01-13 18:52] LABS: WBC 0-2 wbc/hpf (0-5)
[2022-01-13 18:53] LABS: BACTERIA TRACE; EPITHELIAL CELLS 0-2
== END 2022-01-14 05:57 | disposition short-term general hospital (02) ==
LOC: ED 16:13
PROVIDERS: Nurse Practitioner Family
DX: I71.4 Abdominal aortic aneurysm, without rupture (principal); Z20.822 Contact with and (suspected) exposure to COVID-19

== ENCOUNTER 2022-04-14 12:30 | Emergency (ER) | payer MEDICARE, MEDICAID ==
[~2022-04-14] VITALS: Ht 187.9 cm; Wt 85.3 kg
[2022-04-14 14:03] LABS: BASO # 0.1 10*3/uL (0.0-0.1); BASO % 1.4 % (0.0-1.0); EOS # 0.1 10*3/uL (0.0-0.4); EOS % 2.1 % (1.0-4.0); HEMATOCRIT 40.6 % (42.0-52.0); LYMPH # 0.3 10*3/uL (1.3-4.4); LYMPH % 4.4 % (27.0-41.0); MEAN CELL VOLUME 85.7 fl (80.0-94.0); MEAN CORPUSCULAR HGB 29.3 pg (27.0-31.0); MEAN CORPUSCULAR HGB CONC 34.2 g/dl (33.0-37.0); MEAN PLATELET VOLUME 10.4 fl (9.6-12.3); MONO # 0.7 10*3/uL (0.1-1.0); MONO % 11.6 % (3.0-9.0); NEUT # 4.4 10*3/uL (2.3-7.9); NEUT % 79.1 % (47.0-73.0); PLATELET COUNT AUTOMATED 171 10*3/uL (130-400); RED BLOOD COUNT 4.74 10*6/uL (4.50-5.90); RED CELL DISTRI WIDTH 14.3 % (0-14.5); WHITE BLOOD COUNT 5.6 10*3/uL (4.8-10.8)
[2022-04-14 14:21] LABS: ACT PARTIAL THROMBO TIME 28.1 SECONDS (20.0-32.1)
[2022-04-14 14:29] LABS: ALKALINE PHOSPHATASE 97 U/L (45-117); BUN 17 mg/dl (7-24); CHLORIDE 102 mmol/L (98-107); CREATININE 1.35 mg/dL (0.70-1.30); SGOT/AST 9 IU/L (3-35); SGPT/ALT 12 U/L (12-78); SODIUM 133 mmol/L (136-145); TOTAL PROTEIN 6.5 gm/dL (6.4-8.2)
== END 2022-04-14 16:40 | disposition home or self-care (01) ==
LOC: ED 12:30
PROVIDERS: Emergency Medicine
DX: R42 Dizziness and giddiness (principal); I73.9 Peripheral vascular disease, unspecified; I10 Essential (primary) hypertension; E46 Unspecified protein-calorie malnutrition; F17.200 Nicotine dependence, unspecified, uncomplicated; Z98.890 Other specified postprocedural states

== ENCOUNTER → 2022-08-16 | Outpatient (CLI) | payer MEDICARE, MEDICAID ==
[2022-08-16 15:26] LABS: BUN 20 mg/dl (9-23); CHLORIDE 104 mmol/L (98-107); CREATININE 1.19 mg/dL (0.70-1.30); POTASSIUM 4.2 mmol/L (3.4-5.1); SODIUM 135 mmol/L (136-145)
== END | disposition home or self-care (01) ==
LOC: LAB 14:38
PROVIDERS: ATTEND Surgery Vascular Surgery
DX: I71.43 Infrarenal abdominal aortic aneurysm, without rupture (principal); Z98.890 Other specified postprocedural states; Z86.79 Personal history of other diseases of the circulatory system

== ENCOUNTER 2024-05-22 17:11 | Emergency (ER) | payer MEDICARE, MEDICAID ==
[~2024-05-22] VITALS: Ht 187.9 cm; Wt 86.2 kg
[2024-05-22] MEDS ORDERED: methylPREDNISolone sod succ 125 MG VIAL IV ONE (17:35)
[2024-05-22] MEDS ORDERED: Albuterol Sulf/Ipratropium 3 ML VIAL NEB ONE (17:35)
[2024-05-22 17:50] LABS: BASO # 0.1 10*3/uL (0.0-0.1); BASO % 0.4 % (0.0-1.0); EOS # 0.4 10*3/uL (0.0-0.4); EOS % 3.3 % (1.0-4.0); HEMATOCRIT 47.1 % (42.0-52.0); LYMPH # 1.3 10*3/uL (1.3-4.4); LYMPH % 11.3 % (27.0-41.0); MEAN CELL VOLUME 90.2 fl (80.0-94.0); MEAN CORPUSCULAR HGB 29.9 pg (27.0-31.0); MEAN CORPUSCULAR HGB CONC 33.1 g/dl (33.0-37.0); MEAN PLATELET VOLUME 10.1 fl (9.6-12.3); MONO # 1.3 10*3/uL (0.1-1.0); MONO % 11.3 % (3.0-9.0); NEUT # 8.3 10*3/uL (2.3-7.9); NEUT % 73.3 % (47.0-73.0); PLATELET COUNT AUTOMATED 223 10*3/uL (130-400); RED BLOOD COUNT 5.22 10*6/uL (4.50-5.90); RED CELL DISTRI WIDTH 13.2 % (0-14.5); WHITE BLOOD COUNT 11.3 10*3/uL (4.8-10.8)
[2024-05-22 18:16] LABS: ALKALINE PHOSPHATASE 100 U/L (46-116); BUN 14 mg/dl (9-23); CHLORIDE 100 mmol/L (98-107); POTASSIUM 4.1 mmol/L (3.4-5.1); SGPT/ALT 12 U/L (5-49); TOTAL PROTEIN 6.7 gm/dL (6.0-8.0)
[2024-05-22] MEDS ORDERED: PREDNISONE20 M1 PO (18:52)
[2024-05-22] MEDS ORDERED: AVPAK AZITHROM250 M1 PO (18:52)
== END 2024-05-22 19:30 | disposition home or self-care (01) ==
LOC: ED 17:11
DX: J44.1 Chronic obstructive pulmonary disease with (acute) exacerbation (principal); Z20.822 Contact with and (suspected) exposure to COVID-19; I10 Essential (primary) hypertension; F17.290 Nicotine dependence, other tobacco product, uncomplicated; Z98.890 Other specified postprocedural states